=== PATIENT | male | born 1975 | race Caucasian/White ===

== ENCOUNTER 2019-11-27 18:25 | Emergency (ER) | payer OTHER, SELFPAY ==
--- NOTE | 2019-11-27 18:46 | ED.URI ---
HPI - URI/Sore Throat General Chief Complaint: Upper Respiratory Infection Stated Complaint: cough Time Seen by Provider: 11/27/19 18:46 Source: patient and RN notes reviewed History of Present Illness HPI Narrative: Patient is a 44-year-old male that presents the urgent care with complaints of cough for the last 2 weeks but is now productive and yellow within the last day. Patient states he is also had some intermittent shortness of breath with coughing fits. Denies any wheezing. Has been using Mucinex. Denies any fever. No other acute complaints. No acute distress noted. Patient read the plan of care. Related Data Home Medications Medication Instructions Recorded Confirmed lisinopril 10 mg PO DAILY 11/27/19 11/27/19 pravastatin 20 mg PO DAILY 11/27/19 11/27/19 Allergies Allergy/AdvReac Type Severity Reaction Status Date / Time No Known Allergies Allergy Verified 11/27/19 19:05 Review of Systems Review of Systems: Narrative: CONSTITUTIONAL: Denies fever, chills, or sweats. EYES: Denies visual changes, redness, or discharge. ENT: Denies rhinorrhea, congestion, sore throat, or otalgia. CARDIOVASCULAR: Denies chest pain, palpitations, or edema. RESPIRATORY: Reports of cough with intermittent dyspnea with coughing fits. GASTROINTESTINAL: Denies abdominal pain, nausea, vomiting, or diarrhea. GENITOURINARY: Denies dysuria or hematuria. SKIN: Denies rash or itching. MUSCULOSKELETAL: Denies back pain, joint pain, or myalgia. NEUROLOGIC: Denies headache, numbness, or weakness. All other systems reviewed are negative, except as documented in HPI. PMFSH Comments At the time of my signature, I reviewed and agree with the nursing past medical, surgical, social, and family history. There is no relevant family history pertinent to the patient complaint. Exam Narrative: Exam Narrative: GENERAL: This is a well-nourished, well-developed patient, in no apparent distress. HEAD: normocephalic, atraumatic. EYES: PERRL. Sclera clear/white. Vision is grossly intact. EARS: External ears normal, auditory canals clear and without drainage, TMs normal without perforation. Hearing grossly intact. NOSE: External nose normal with no obvious nasal discharge, nares without redness, no rhinorrhea. THROAT: Mucous membranes moist, posterior pharynx clear. Moderate postnasal drainage NECK: Neck supple CARDIOVASCULAR: Regular rate and rhythm without murmurs, gallops, or rubs. RESPIRATORY: Slight expiratory wheeze to right upper lobe, cleared with cough. Otherwise clear SKIN: warm, intact with no suspicious lesions or rash, good texture and turgor. NEURO: awake, alert, and oriented to person, place and time. There were no obvious focal neurologic abnormalities. EXTREMITIES: No clubbing, cyanosis, or edema. Course Vital Signs Vital signs: Vital Signs Temperature 98.5 F 11/27/19 18:49 Pulse Rate 89 11/27/19 18:49 Respiratory Rate 16 11/27/19 18:49 Blood Pressure 146/93 H 11/27/19 18:49 Pulse Oximetry 98 11/27/19 18:49 Temperature 98.5 F 11/27/19 18:49 Pulse Rate 89 11/27/19 18:49 Respiratory Rate 16 11/27/19 18:49 Blood Pressure 146/93 H 11/27/19 18:49 Pulse Oximetry 98 11/27/19 18:49 Reviewed?patient is informed that they may have pre-hypertension or hypertension based on a blood pressure reading in the department. I recommend the patient call the primary care provider listed on their discharge instructions or a physician of their choice this week to arrange follow-up for further evaluation of possible pre-hypertension or hypertension. MDM - URI/Sore Throat MDM Narrative Medical decision making narrative: Advised the patient to use [id number] Claritin and Flonase as directed. Use prescription cough medication as prescribed. Complete steroid regimen as prescribed. Make sure to eat and drink with medication. Increase fluids and rest. Follow-up with PCP within 2 to 5 days or for worsening symptoms or lily
[2019-11-27 18:49] VITALS: BP 146/93; PULSE 89; RESP 16; TEMP 36.9; O2SAT 98
== END 2019-11-27 19:20 | disposition home or self-care (01) ==
PROVIDERS: Emergency Provider Nurse Practitioner Family
DX: J40 Bronchitis, not specified as acute or chronic (principal); E78.00 Pure hypercholesterolemia, unspecified; I10 Essential (primary) hypertension
CPT/HCPCS: 99203; G0463

== ENCOUNTER 2023-07-06 14:37 | Outpatient (CLI) | payer OTHER, SELFPAY ==
--- NOTE | ~2023-07-06 | CT_ITS ---
EXAMINATION: CT abdomen pelvis wo con DATE: 07/06/2023 14:57 INDICATION: Incisional hernia TECHNIQUE: Computed tomography (CT) of the abdomen and pelvis was performed without intravenous contr ast. Automated exposure control and iterative reconstruction technique were employed. Exam dose: 114 3.35 mGy-cm total exam DLP. COMPARISON: None. FINDINGS: The lung bases are clear. Heart size normal. No pericardial or pleural effusion. Foramen of Morgagni fat containing hernia. Status post cholecystectomy. No bile duct or pancreatic duct dilatation. No hepatic, pancreatic, splenic or adrenal space-occupying mass lesion. No renal mass lesion is evident on this limited noncontrast examination. No urinary tract calculus or hydroureteronephrosis. Retroaortic left renal vein. Normal caliber of the abdominal aorta. No intraperitoneal or retroperito eloise or pelvic mass lesion or adenopathy or ascites. Prostate enlargement and calcifications. The urinary bladder appears unremarkable. Bilateral fat-containing inguinal hernias, right greater than left. There is postoperative change at the distal small bowel. No bowel obstruction or pneumatosis or intra peritoneal free air is detected. There are multiple ventral abdominal wall hernias containing fat, with one containing the anterior wa ll of the transverse colon without strangulation or obstruction. Diffuse idiopathic skeletal hyperostosis of the lower thoracic spine. Mild degenerative change of the lumbar spine. No suspicious osteolytic or osteoblastic lesions are noted. IMPRESSION: Multiple fat-containing ventral abdominal wall hernia; the transverse colon anterior wal l extends into one of these but with no bowel strangulation or obstruction Bilateral fat-containing inguinal hernias Status post cholecystectomy Postoperative change of distal small bowel Reviewed, dictated and finalized at [facility]. Reviewed, dictated and finalized at [facility]. IMPRESSION: Multiple fat-containing ventral abdominal wall hernia; the transve rse colon anterior wall extends into one of these but with no bowel strangulati on or obstruction Bilateral fat-containing inguinal hernias Status post cholecystectomy Postoperative change of distal small bowel
== END 2023-07-06 14:38 ==
LOC: MICIMG 14:38
PROVIDERS: PCP Surgery; Visit Provider Surgery
DX: K43.2 Incisional hernia without obstruction or gangrene (principal); K40.20 Bilateral inguinal hernia, without obstruction or gangrene, not specified as recurrent; Z90.49 Acquired absence of other specified parts of digestive tract
CPT/HCPCS: 74176

== ENCOUNTER 2023-10-19 14:29 | Outpatient (CLI) | payer OTHER, SELFPAY ==
--- NOTE | 2023-10-19 14:52 | ECG_ITS ---
Measurements Intervals [place] Rate: 89 P: 69 FL: 172 QRS: 121 QRSD: 100 T: 59 QT: 336 QTc: 411 Interpretive Statements SINUS RHYTHM rad INCOMPLETE RIGHT BUNDLE BRANCH BLOCK BORDERLINE R WAVE PROGRESSION, ANTERIOR LEADS BORDERLINE ECG NO PREVIOUS ECG AVAILABLE FOR COMPARISON Electronically Signed On 10-19-2023 15:26:06 SPIRITUAL CARE COORDINATOR by Vlad Martin D.O.
[2023-10-19 14:58] LABS: Hematocrit 52.8 % (42.0-52.0); Hemoglobin 16.9 g/dL (14.0-18.0)
[2023-10-19 15:16] LABS: Anion Gap 9 mmol/L (8-16); Blood Urea Nitrogen 19 mg/dL (9-20); Calcium 9.1 mg/dL (8.4-10.2); Carbon Dioxide 29 mmol/L (22-30); Chloride 98 mmol/L (98-107); Estimated Glomerular Filt Rate > 60; Glucose 73 mg/dL (65-110); Potassium 4.6 mmol/L (3.4-5.0); Sodium 136 mmol/L (137-145)
== END 2023-10-19 14:30 | disposition home or self-care (01) ==
LOC: ANHLAB 14:32
PROVIDERS: PCP Nurse Practitioner Family; Visit Provider Anesthesiology
DX: K43.2 Incisional hernia without obstruction or gangrene (principal); Z79.899 Other long term (current) drug therapy; I10 Essential (primary) hypertension; Z01.818 Encounter for other preprocedural examination
CPT/HCPCS: 36415; 80048; 85014; 85018; 93005

== ENCOUNTER 2023-10-31 16:42 | Inpatient (IN) | payer OTHER, SELFPAY ==
[2023-10-18 14:07] VITALS: BMI 40.6
--- NOTE | 2023-10-18 14:29 | SUR.PREOP ---
Report to the Outpatient Waiting Room, entrance under the green pavilion located off [facility], at time 1000 on date 10/30/22. Planned Procedure Time: 1200. Time changes happen often and if your time is changed the preop area will call you the afternoon before. - You and your visitor will be asked to self-screen and do not enter if you have any COVID symptoms. - A mask is optional within the hospital at this time. Patients may have clear liquids (water, carbonated beverages, clear teas, apple juice) until 3 hours prior to surgery with a maximum of 20 ounces. - No food from midnight until time of surgery - Infants may have breast milk until 4 hours before surgery, infant formula 6 hours prior to surgery. - Children will be allowed to drink immediately following surgery. If applicable, please bring a bottle or sippy cup to assist with drinking. Juice, water, soda, and popsicles are readily available. For infants on formula, please bring formula the day of surgery. Pacifiers are allowed. Take the following medications with a SIP of water the morning of surgery: CARVEDILOL DO NOT STOP ANY OF YOUR OTHER PRESCRIPTION MEDICATIONS PRIOR TO SURGERY ?EXCEPT THE FOLLOWING Medications to discontinue per physician ALL VITAMINS AND SUPPLIMENTS 3 DAYS PRIOR TO PROCEDURE Date to take last dose 10/27/22 Please no make-up, nail kittitian, hairspray, perfume, deodorant, or body powder the day of surgery. No jewelry (including any body piercings) or valuables the day of surgery, leave them at home. Please take a shower or bath the night before, or the morning of, surgery with an antibacterial soap. Wear comfortable, loose fitting clothing. Children are encouraged to wear pajamas. - Jewelry must be removed prior to entering the operating room. Rings and piercings that are not removed may be cut off. - The hospital will not accept responsibility for valuables. - Please leave all valuables, including medications, at home the day of surgery. If you are going home after surgery, a licensed delivery route driver must drive you home. - NO public transportation without another adult if you receive anesthesia. - We recommend that an adult stay with you for 24 hours following discharge. - We also recommend that you do not drive, make important decision, drink alcoholic beverages, or take any drugs that were not prescribed by your health care provider for at least 24 hours after your discharge time. For Pediatric surgeries, we recommend two adults accompany the child home. Follow any additional instructions given to you from your surgeon. If you or anyone in your household have experienced Covid symptoms in the past week, please notify your surgeon or the nurse liaison at the phone number below for possible testing. Telephone instructions given to TED MATUTE and asked if any additional questions and then verbalized understanding. Patient advised to call surgeon office or pre surgery nurse liaison [phone] if any additional questions.
[2023-10-30] VITALS (16 sets, daily range): BP systolic 94–149; BP diastolic 58–95; PULSE 86–97; RESP 12–20; TEMP 36.1–37.1; O2SAT 90–98
[2023-10-30] MEDS: ACETAMINOPHEN 500 MG TABLET 1000 MG PO ×3 (10:20→23:37)
[2023-10-30] MEDS: KETOROLAC 15 MG/ML VIAL (*BKC) IV PUSH (10:20)
--- NOTE | 2023-10-30 11:21 | SUR.PREOP ---
patient and family updated on possible 30 minute delay to start time understanding stated
--- NOTE | 2023-10-30 11:40 | PM.IMHP ---
H&P: HPI History of Present Illness Date/Time: 10/30/23 11:40 Chief Complaint: Recurrent incisional hernia Narrative: This is a 48 yo man who presents for recurrent incisional hernia repair. He has had multiple abdominal surgeries in the past and has multiple incisional hernias along a midline scar. He reports no changes since last seen in office. Review of Systems Review of Systems: All systems reviewed & are unremarkable except as noted in HPI and below Constitutional: Constitutional: Denies chills, Denies fever(s), Denies headache(s) and Denies weight loss Eyes: Eyes: Denies change in vision ENT: Denies dizziness, Denies headache(s), Denies neck mass and Denies throat swelling Cardiovascular: Cardiovascular: Denies chest pain, Denies lightheadedness and Denies dyspnea Respiratory: Respiratory: Denies cough, Denies dyspnea and Denies wheezing Gastrointestinal: Gastrointestinal: Denies abdominal pain, Denies change in bowel habits, Denies nausea and Denies vomiting Genitourinary: Genitourinary: Denies hematuria and Denies dysuria Musculoskeletal: Musculoskeletal: Reports as per HPI Integumentary/Breasts: Skin/Breast: Reports as per HPI Neurologic: Denies dizziness and Denies headache(s) Allergic/Immunologic: Allergic/Immunologic: Denies throat swelling and Denies wheezing PMF Past Medical History Medical History Bowel obstruction Surgical History Surgical History History of cholecystectomy History of hernia surgery Adhesiolysis with incisional hernia repair on 09/20/08 at [facility] History of laparotomy +25 years ago Family History Family History Other Hypertension Social History Social History Smoking status: Never smoker Alcohol intake: current Living arrangements: with family Occupation/Education: occupation Spiritual care concerns: No Meds Home Medications and Allergies Home Medications Medication Instructions Recorded Confirmed Type carvedilol 12.5 mg tablet 12.5 mg PO Q12H 06/29/23 10/18/23 History lisdexamfetamine 60 mg capsule 60 mg PO DAILY 06/29/23 10/18/23 History rosuvastatin 10 mg tablet 10 mg PO DAILY 06/29/23 10/18/23 History testosterone enanthate 50 mg/0.5 50 mg subcut WEEKLY 06/29/23 10/18/23 History mL subcutaneous auto-injector valsartan 160 1 tablet PO DAILY 06/29/23 10/18/23 History mg-hydrochlorothiazide 25 mg tablet calcium-vitamin D3 1 cap PO DAILY 10/18/23 10/18/23 History Allergies Allergy/AdvReac Type Severity Reaction Status Date / Time pseudoephedrine AdvReac Headache Verified 10/30/23 10:37 [From Sudafed] Vital Signs Vital Signs - 24 hr 10/30/23 10:20 Temperature 36.9 C Pulse Rate 86 Respiratory Rate 14 Blood Pressure 149/95 H Pulse Oximetry 98 Oxygen Delivery Room Air Exam Const: General: no acute distress and alert Orientation/consciousness: patient oriented x3 HENMT: Head: normocephalic and atraumatic Ears: hearing grossly normal bilaterally Face/Nose/Sinus: Normal nares present Mouth: Yes Normal oral and palatal mucosa present Eyes: Periorbital: periorbital findings normal Sclera: sclerae normal EOM: EOMs intact bilaterally Neck: Neck: normal visual inspection, no lymphadenopathy and trachea midline Chest: Chest palpation & inspection: normal inspection of the chest Resp: Effort & Inspection: normal respiratory effort Auscultation: clear to auscultation bilaterally Cardio: Jugular venous distension: no JVD Rate: regular rate Rhythm: regular rhythm Heart sounds: S1 normal heart sound present and S2 normal heart sound present Peripheral pulses: Peripheral pulses 2+ throughout GI: Inspection: normal to inspection GI Palp: Yes Soft to palpation, No Tendernes
--- NOTE | 2023-10-30 11:45 | WPDANESEPPF ---
Anes - Initial Pre Proc Eval Procedure: Operation Date: 10/30/23 12:00 Proposed Procedures p Open Recurrent Incisional Hernia Repair with Mesh, Bilateral Component Separation - Jt Maher DO Date/Time: 10/30/23 11:45 Surgeon: Jt Maher DO Pre Op Diagnosis: Recurrent Incisional Hernia Patient Data Age: 48 Gender: M Height: 1.83 m Weight: 136.9 kg Last Vital Signs Temp 98.5 F 10/30/23 10:20 Pulse 86 10/30/23 10:20 Resp 14 10/30/23 10:20 BP 149/95 H 10/30/23 10:20 Pulse Ox 98 10/30/23 10:20 O2 Del Method Room Air 10/30/23 10:20 Allergies Allergy/AdvReac Type Severity Reaction Status Date / Time pseudoephedrine AdvReac Headache Verified 10/30/23 10:37 [From [facility]] Home Medications Medication Instructions Recorded Confirmed Type carvedilol 12.5 mg tablet 12.5 mg PO Q12H 06/29/23 10/18/23 History lisdexamfetamine 60 mg capsule 60 mg PO DAILY 06/29/23 10/18/23 History rosuvastatin 10 mg tablet 10 mg PO DAILY 06/29/23 10/18/23 History testosterone enanthate 50 mg/0.5 50 mg subcut WEEKLY 06/29/23 10/18/23 History mL subcutaneous auto-injector valsartan 160 1 tablet PO DAILY 06/29/23 10/18/23 History mg-hydrochlorothiazide 25 mg tablet calcium-vitamin D3 1 cap PO DAILY 10/18/23 10/18/23 History Patient hx anesthesia problems: none Family hx anesthesia problems: none Results Review: All pre-operative results and documents have been reviewed as part of the pre-operative evaluation. [facility] Past Medical History Medical History Bowel obstruction Surgical History Surgical History History of cholecystectomy History of hernia surgery Adhesiolysis with incisional hernia repair on 09/20/08 at [facility] History of laparotomy +25 years ago Family History Family History Other Hypertension Social History Social History Smoking status: Never smoker Alcohol intake: current Living arrangements: with family Occupation/Education: occupation Spiritual care concerns: No Anes - Eval Final PreProcedure Day of Procedure 10/30/23 11:45 Patient weight: morbidly obese Heart: regular rate and rhythm Lungs: clear to auscultation Airway: Mallampati scale class III Neurological: alert and oriented Last oral intake: >/= 8 hours ASA classification: III Emergent: no Anesthetic plan: proceed Anesthesia type and monitoring: general ETT (have glide scope available) and standard monitoring Results Review: All pre-operative results and documents have been reviewed as part of the pre-operative evaluation. Informed Consent: The patient's anesthetic plan and its attendant risks and benefits were discussed with the patient/family/POA. Questions were solicited and answers provided to the satisfaction of the patient/family/POA.
--- NOTE | 2023-10-30 11:52 | WPDHPUPDATE1 ---
History and Physical Update Update Date/Time: 10/30/23 11:52 History and Physical has been reviewed, including an updated exam of the patient. There are NO changes in the patient's condition. Risks, benefits, and alternatives have been discussed and questions answered. Patient agrees to proceed with procedure.
[2023-10-30] MEDS: LACTATED RINGERS 1,000 ML 30 ML IV CONT ×2 (12:00→12:02)
--- NOTE | 2023-10-30 16:14 | W.PM.PROC2 ---
Procedure Note - Detailed Date of Procedure 10/30/23 Pre-op Diagnosis Recurrent Incisional Hernia Post-op Diagnosis Same (20 cm Recurrent Incisional hernia) Procedure Performed 1. Open recurrent 20 cm incisional hernia repair with mesh 2. Bilateral myofascial release (transversus abdominis release--5 cm on the right and 5 cm on the left) Surgeon Jt Maher DO Frame Feeder Fritz Anaya MD Anesthesia General Indications This is a 48-year-old man who presented with a recurrent abdominal bulge. He has a history of multiple previous abdominal surgeries. He has a history exploratory laparotomy more than 25 years ago. He then also had a history of small-bowel obstruction and had undergone exploratory laparotomy, adhesiolysis, open cholecystectomy, and incisional hernia repair in 2007. He has noticed a recurrent bulge that has increased in size over the past 10 years. It does cause some slight discomfort. A CT of his abdomen and pelvis was performed which showed multiple incisional hernias. Discussions were made with the patient about treatment options and decision was made to proceed with open recurrent incisional hernia repair with mesh and bilateral component separation. Findings Open recurrent incisional hernia repair was performed. Patient had multiple recurrent incisional hernias along the linea alba measuring a total distance of 20 cm craniocaudal from the most superior hernia to the most inferior. The widest hernia was in the periumbilical region measuring about 10 cm wide. Careful adhesiolysis was initially performed to free up all adhesions from the anterior abdominal wall. I then did into the retrorectus space and took down the posterior rectus sheath. The fascia appeared very tight and would not come together without significant tension. I then performed a transversus abdominis release initially on the left side and this allowed about 5 cm of fascial advancement. The fascia was still difficult to bring together without too much tension therefore a transversus abdominis release was performed on the right side as well. This allowed another 5 cm of fascial advancement. I then was able to bring the fascia together in midline to perform the repair. A 30 cm x 30 cm Bard soft mesh this was placed within the retrorectus space. This was oriented in a ruma pattern for a total length of about 42 cm from xiphoid to pubis. The hernia sac was excised from the anterior rectus sheath and linea alba and this was sent to the lab for pathology. Dr. Anaya assisted with development of the retrorectus space as well as bilateral transversus abdominis release, fascial closure, and mesh placement. Description of Procedure Procedure as well as risks, benefits, and alternatives were discussed with the patient. Written consent was obtained and placed in chart prior to procedure. Patient was brought back to surgical suite. He was placed supine on operating table. Time-out was done to confirm patient and procedure. He was then intubated by the anesthesia department. His abdomen was prepped and draped in sterile fashion using chlorhexidine prep. A large vertical midline elliptical incision was made to encompass the old scar and umbilical skin. Electrocautery was used for hemostasis and for dissection of the scar from the subcutaneous tissue. The scar and umbilical skin was completely excised and discarded. The subcutaneous tissue was then dissected in the midline using electrocautery until the linea alba was encountered. I then carefully entered in through the linea alba at 1 of the hernias in the more superior abdomen. There was omentum protruding into the hernia, but the underlying fascia appeared free from bowel. I then continued blunt dissection and opened the linea alba throughout the length of the skin incision using electrocautery. Adhesiolysis was performed to take down any of the omental adhesions from the hernia defects and abdominal wall. I then co
[2023-10-30] MEDS: fentaNYL CITRATE INJ (*CRX) 100 MCG/2 ML VIAL 25 MCG IV PUSH ×6 (16:45→17:11)
--- NOTE | 2023-10-30 17:59 | ADMGEN ---
This patient, Cecil Bustillos III, was admitted to Medical Room 349-01. Patient/family oriented to hospital policies and general routines including ID bracelet, bed and alarms, visiting hours, pain management, procedures, bathroom and other care routines, personal items, smoking policy, room service/diet, and visiting hours. Information on how to activate the Rapid Response Team has been discussed. Patient/Family are encouraged to report perceived risks to care and to ask questions if they do not understand what they are told or what they should do.
[2023-10-30] MEDS: IBUPROFEN IV 800 MG/200 ML 800 MG/200 ML BAG 400 MG IVPB ×2 (18:11→23:34)
[2023-10-30] MEDS: LACTATED RINGERS 1,000 ML 150 ML IV CONT (18:11)
[2023-10-30] MEDS: HYDROmorphone HCL INJ (*CRX) 1 MG/ML SYR IV PUSH (18:20)
[2023-10-30] MEDS: carvediloL 12.5 MG TABLET PO (20:02)
[2023-10-30] MEDS: ceFAZolin 2 GM/D5W 50 ML 2 GM/50 ML BAG IVPB (20:02)
[2023-10-30] MEDS: oxyCODONE HCL (*CRX) 5 MG TAB IR 10 MG PO (20:10)
[2023-10-31] VITALS (7 sets, daily range): BP systolic 117–138; BP diastolic 65–78; PULSE 71–90; RESP 14–16; TEMP 36.4–36.8; O2SAT 92–95
[2023-10-31] MEDS: oxyCODONE HCL (*CRX) 5 MG TAB IR 10 MG PO ×2 (00:11→14:04)
[2023-10-31] MEDS: HYDROmorphone HCL INJ (*CRX) 1 MG/ML SYR IV PUSH (02:13)
[2023-10-31] MEDS: LACTATED RINGERS 1,000 ML 150 ML IV CONT (02:20)
[2023-10-31] MEDS: ceFAZolin 2 GM/D5W 50 ML 2 GM/50 ML BAG IVPB ×2 (04:18→11:47)
[2023-10-31] MEDS: IBUPROFEN IV 800 MG/200 ML 800 MG/200 ML BAG 400 MG IVPB ×4 (05:56→23:39)
[2023-10-31] MEDS: ACETAMINOPHEN 500 MG TABLET 1000 MG PO ×4 (05:56→23:38)
[2023-10-31 07:15] LABS: Hematocrit 46.7 % (42.0-52.0); Hemoglobin 14.7 g/dL (14.0-18.0); Mean Corpuscular HGB Conc 31.5 g/dl (32-36); Mean Corpuscular Hemoglobin 28.6 pg (26-34); Mean Corpuscular Volume 90.9 fl (80-100); Mean Platelet Volume 9.7 fl (7.4-10.4); Platelet Count Result 259 k/mm3 (150-375); Red Blood Count 5.14 M/mm3 (4.6-6.20); Red Cell Distribution Width 14.2 % (11.5-14.5); White Blood Count 26.9 K/mm3 (4.5-10.0)
[2023-10-31 07:27] LABS: Anion Gap 7 mmol/L (8-16); Blood Urea Nitrogen 26 mg/dL (9-20); Calcium 7.6 mg/dL (8.4-10.2); Carbon Dioxide 29 mmol/L (22-30); Chloride 96 mmol/L (98-107); Estimated CRCL calculation 88 ml/min; Estimated Glomerular Filt Rate 59; Glucose 121 mg/dL (65-110); Potassium 4.3 mmol/L (3.4-5.0); Sodium 132 mmol/L (137-145)
--- NOTE | 2023-10-31 08:15 | WPDANESPN ---
Anes - Prog Note Post-Op Date/Time: 10/31/23 08:15 Cardiovascular status: normal Respiratory status: normal Airway patency: baseline Mental status: baseline Post-Op hydration status: normal Vital Signs: Last Vital Signs Temp 36.6 C 10/31/23 03:27 Pulse 90 10/31/23 03:27 Resp 14 10/31/23 03:27 BP 134/67 10/31/23 03:27 Pulse Ox 92 10/31/23 03:27 O2 Del Method CPAP 10/30/23 21:17 O2 Flow Rate 2 10/30/23 17:30 Pain Score (VAS): 12/23 I/O: Intake & Output 10/30/23 10/31/23 10/31/23 23:59 07:59 15:59 Intake Total 600 1200 Output Total 40 495 Balance 560 705 Laboratory Tests 10/31/23 07:07 10/31/23 07:07 10/31/23 07:07 WBC 26.9 H RBC 5.14 Hgb 14.7 Hct 46.7 MCV 90.9 MCH 28.6 MCHC 31.5 L RDW 14.2 Plt Count 259 MPV 9.7 Sodium 132 L Potassium 4.3 Chloride 96 L Carbon Dioxide 29 Anion Gap 7 L BUN 26 H Creatinine 1.30 Estim Creat Clear Calc 88 Estimated GFR 59 Glucose 121 H Calcium 7.6 L Post-procedural complaints: none Patient Feedback: Patient satisfied with anesthetic care.
[2023-10-31] MEDS: ENOXAPARIN 40 MG/0.4 ML SYRINGE SUB-Q (09:03)
[2023-10-31] MEDS: ROSUVASTATIN 10 MG TABLET PO (09:03)
[2023-10-31] MEDS: carvediloL 12.5 MG TABLET PO ×2 (09:03→20:59)
[2023-10-31] MEDS: ALVIMOPAN 12 MG CAPSULE PO ×2 (09:56→20:59)
--- NOTE | 2023-10-31 11:07 | PM.PNGS ---
Progress Note: A&P Assessment and Plan (1) Recurrent incisional hernia: Code(s): K43.2 - Incisional hernia without obstruction or gangrene Status: Acute Assessment and Plan: Advance to regular diet today. Stop IV fluids and remove Tracey. Slowly increase activity. (2) Hypertension: Qualifiers: Hypertension type: primary hypertension Qualified Code(s): I10 - Essential (primary) hypertension Code(s): I10 - Essential (primary) hypertension Status: Acute Subjective Subjective Date/Time Seen: 10/31/23 11:07 Interval history: Pain controlled. Feeling a little better. Tolerating clears. Exam GI: Inspection: incision (mild bleeding at inferior ecsar, otherwise intact and dry) GI Palp: Yes Soft to palpation, Yes Tenderness to palpation present (GI) (incisional) and No Guarding due to palpation present (GI) Objective Data Vital Signs Vital Signs: Vital Signs - 24 hr 10/30/23 15:56 10/30/23 16:00 10/30/23 16:15 Temperature 36.1 C L Pulse Rate 89 91 92 Respiratory Rate 17 19 20 Blood Pressure 100/84 99/58 L 105/59 L Pulse Oximetry 95 96 93 Oxygen Delivery Simple Face Mask Simple Face Mask Room Air Oxygen Flow Rate 10 10 10/30/23 16:18 10/30/23 16:30 10/30/23 16:45 Temperature Pulse Rate 94 94 Respiratory Rate 19 19 Blood Pressure 94/68 L 119/72 Pulse Oximetry 90 93 93 Oxygen Delivery Nasal Cannula Nasal Cannula Nasal Cannula Oxygen Flow Rate 2 2 2 10/30/23 17:00 10/30/23 17:15 10/30/23 17:30 Temperature Pulse Rate 97 96 95 Respiratory Rate 17 18 20 Blood Pressure 121/71 128/76 120/69 Pulse Oximetry 93 94 93 Oxygen Delivery Nasal Cannula Nasal Cannula Nasal Cannula Oxygen Flow Rate 2 2 2 10/30/23 18:00 10/30/23 18:15 10/30/23 19:27 Temperature 37.0 C 37.1 C 36.6 C Pulse Rate 92 94 Respiratory Rate 16 16 12 Blood Pressure 138/88 146/86 H 133/78 Pulse Oximetry 91 95 93 Oxygen Delivery Oxygen Flow Rate 10/30/23 20:02 10/30/23 21:17 10/30/23 23:27 Temperature 36.7 C Pulse Rate 95 90 92 Respiratory Rate 14 Blood Pressure 116/68 Pulse Oximetry 90 95 Oxygen Delivery CPAP Oxygen Flow Rate 10/31/23 03:27 10/31/23 08:00 10/31/23 09:03 Temperature 36.6 C 36.7 C Pulse Rate 90 71 71 Respiratory Rate 14 16 Blood Pressure 134/67 134/75 Pulse Oximetry 92 94 Oxygen Delivery Oxygen Flow Rate Intake/Output Intake/Output: Intake & Output 10/28/23 10/29/23 10/30/23 10/31/23 23:59 23:59 23:59 23:59 Intake Total 600 1440 Output Total 40 495 Balance 560 945 Meds/Results Medications: Active Medications Generic Name Dose Route Start Last Admin Trade Name Freq PRN Reason Stop Dose Admin Acetaminophen 1,000 mg 10/30/23 18:00 10/31/23 05:56 Acetaminophen 500 Mg Tablet PO 1,000 mg Q6H ABNER Administration Alvimopan 12 mg 10/31/23 09:00 10/31/23 09:56 Alvimopan 12 Mg Capsule PO 11/07/23 09:01 12 mg Q12HR ABNER Administration Carvedilol 12.5 mg 10/30/23 21:00 10/31/23 09:03 Carvedilol 12.5 Mg Tablet PO 12.5 mg Q12H ABNER Administration Enoxaparin Sodium 40 mg 10/31/23 09:00 10/31/23 09:03 Enoxaparin 40 Mg/0.4 Ml Syringe SUB-Q 40 mg DAILY ABNER Administration Hydromorphone HCl 0.5 mg 10/30/23 17:42 Hydromorphone Hcl Inj (*Crx) 1 Mg/Ml Syr IV PUSH Q2H PRN Pain Rated 4-6 Hydromorphone HCl 1 mg 10/30/23 17:42 10/31/23 02:13 Hydromorphone Hcl Inj (*Crx) 1 Mg/Ml Syr IV PUSH 1 mg Q2H PRN Administration Pain Rated 7-10 Ibuprofen 800 mg in 200 mls @ 400 mls/hr 10/30/23 18:00 10/31/23 05:56 Caldolor 800 Mg/200 Ml IVPB 400 mls/hr Q6H ABNER Administration Cefazolin Sodium 2 gm in 50 mls @ 100 mls/hr 10/30/23 20:00 10/31/23 04:18 Ancef 2 Gm/D5w 50 Ml IVPB 10/31/23 12:29 100 mls/hr Q8H ABNER Administration Miscellaneous Information 1 each 10/31/23 00:01 Med Rec Order Clarification XX 11/30/23 00:00 CL
[2023-11-01] MEDS: ACETAMINOPHEN 500 MG TABLET 1000 MG PO ×3 (05:17→23:27)
[2023-11-01] MEDS: IBUPROFEN IV 800 MG/200 ML 800 MG/200 ML BAG 400 MG IVPB ×4 (05:17→23:27)
[2023-11-01 05:50] VITALS: BP 139/78; PULSE 83; RESP 18; TEMP 36.7; O2SAT 93
[2023-11-01 06:04] LABS: Hemoglobin 13.5 g/dL (14.0-18.0); Mean Corpuscular HGB Conc 31.4 g/dl (32-36); Mean Corpuscular Hemoglobin 28.4 pg (26-34); Mean Corpuscular Volume 90.5 fl (80-100); Mean Platelet Volume 9.9 fl (7.4-10.4); Platelet Count Result 232 k/mm3 (150-375); Red Blood Count 4.75 M/mm3 (4.6-6.20); White Blood Count 16.1 K/mm3 (4.5-10.0)
[2023-11-01 06:16] LABS: Anion Gap 6 mmol/L (8-16); Blood Urea Nitrogen 23 mg/dL (9-20); Calcium 7.8 mg/dL (8.4-10.2); Carbon Dioxide 29 mmol/L (22-30); Chloride 99 mmol/L (98-107); Estimated CRCL calculation 113 ml/min; Estimated Glomerular Filt Rate > 60; Glucose 105 mg/dL (65-110); Potassium 3.7 mmol/L (3.4-5.0); Sodium 134 mmol/L (137-145)
[2023-11-01] MEDS: ROSUVASTATIN 10 MG TABLET PO (09:18)
[2023-11-01] MEDS: ALVIMOPAN 12 MG CAPSULE PO ×2 (09:18→20:55)
[2023-11-01] MEDS: ENOXAPARIN 40 MG/0.4 ML SYRINGE SUB-Q (09:18)
[2023-11-01 09:19] VITALS: PULSE 103
[2023-11-01] MEDS: carvediloL 12.5 MG TABLET PO ×2 (09:19→20:54)
--- NOTE | 2023-11-01 14:34 | PM.PNGS ---
Progress Note: A&P Assessment and Plan (1) Recurrent incisional hernia: Code(s): K43.2 - Incisional hernia without obstruction or gangrene Status: Acute Assessment and Plan: Continues to improve. Tolerating a regular diet. Monitor SHELLI drain. Continue to increase activity as tolerated. If he continues to improve, will possibly discharge tomorrow. (2) Hypertension: Qualifiers: Hypertension type: primary hypertension Qualified Code(s): I10 - Essential (primary) hypertension Code(s): I10 - Essential (primary) hypertension Status: Acute Plan I have discussed the patient's case and plan of care with Dr. Maher. Subjective Subjective Date/Time Seen: 11/01/23 14:34 Post Op day: 2 Patient reports: no new complaints, tolerating a regular diet, voiding w/o difficulty, flatus and afebrile Interval history: Patient doing well today. He is increasing activity and tolerating this well. Tolerating a regular diet without nausea or vomiting. He feels the Ibuprofen IV is helping his pain control the most. Voiding well after Tracey catheter was removed. No other complaints at this time. Review of Systems Review of Systems: All systems reviewed & are unremarkable except as noted in HPI and below Exam Const: General: no acute distress and alert GI: Inspection: incision (dressing dry and intact) and other (SHELLI drain with sanguineous drainage) GI Palp: Yes Soft to palpation and Yes Tenderness to palpation present (GI) Auscultation: normal bowel sounds Objective Data Vital Signs Vital Signs: Vital Signs - 24 hr 10/31/23 15:27 10/31/23 20:57 10/31/23 22:00 Temperature 98.3 F 97.6 F Pulse Rate 72 88 85 Respiratory Rate 16 16 Blood Pressure 117/65 135/75 Pulse Oximetry 93 93 93 Oxygen Delivery CPAP 11/01/23 05:50 11/01/23 09:19 11/01/23 08:00 Temperature 98.1 F Pulse Rate 83 103 H Respiratory Rate 18 Blood Pressure 139/78 Pulse Oximetry 93 Oxygen Delivery Room Air Intake/Output Intake/Output: Intake & Output 10/29/23 10/30/23 10/31/23 11/01/23 23:59 23:59 23:59 23:59 Intake Total 600 2570 1200 Output Total 40 1065 Balance 560 1505 1200 Meds/Results Medications: Active Medications Generic Name Dose Route Start Last Admin Trade Name Freq PRN Reason Stop Dose Admin Acetaminophen 1,000 mg 10/30/23 18:00 11/01/23 11:27 Acetaminophen 500 Mg Tablet PO 1,000 mg Q6H ABNER Administration Alvimopan 12 mg 10/31/23 09:00 11/01/23 09:18 Alvimopan 12 Mg Capsule PO 11/07/23 09:01 12 mg Q12HR ABNER Administration Carvedilol 12.5 mg 10/30/23 21:00 11/01/23 09:19 Carvedilol 12.5 Mg Tablet PO 12.5 mg Q12H ABNER Administration Enoxaparin Sodium 40 mg 10/31/23 09:00 11/01/23 09:18 Enoxaparin 40 Mg/0.4 Ml Syringe SUB-Q 40 mg DAILY ABNER Administration Hydromorphone HCl 0.5 mg 10/30/23 17:42 Hydromorphone Hcl Inj (*Crx) 1 Mg/Ml Syr IV PUSH Q2H PRN Pain Rated 4-6 Hydromorphone HCl 1 mg 10/30/23 17:42 10/31/23 02:13 Hydromorphone Hcl Inj (*Crx) 1 Mg/Ml Syr IV PUSH 1 mg Q2H PRN Administration Pain Rated 7-10 Ibuprofen 800 mg in 200 mls @ 400 mls/hr 10/30/23 18:00 11/01/23 11:58 Caldolor 800 Mg/200 Ml IVPB Infused Q6H [facility] Infusion Miscellaneous Information 1 each 10/31/23 00:01 Med Rec Order Clarification XX 11/30/23 00:00 [facility] Naloxone HCl 0.1 mg 10/30/23 17:42 Naloxone Hcl 0.4 Mg/Ml Vial IV PUSH Q2M PRN Opiate Reversal Non-Formulary Medication 60 mg 10/31/23 09:00 Lisdexamfetamine PO 11/30/23 08:59 DAILY [facility] Ondansetron HCl 4 mg 10/30/23 17:42 Ondansetron Inj 4 Mg/2 Ml Vial IV PUSH Q4H PRN Nausea And Vomiting Oxycodone HCl 5 mg 10/30/23 17:42 Oxycodone Hcl (*Crx) 5 Mg Tab Ir PO Q4H PRN Pain Rated 4-6 Oxycodone HCl 10 mg 10/30/23 17:42 10/31/23 14:04 Oxycodone Hcl (*Crx) 5 Mg Tab Ir PO 10 m
[2023-11-01 15:13] VITALS: BP 121/77; PULSE 92; RESP 18; TEMP 36.5; O2SAT 96
[2023-11-01] MEDS: oxyCODONE HCL (*CRX) 5 MG TAB IR PO (17:10)
[2023-11-01 20:00] VITALS: PULSE 90; RESP 18; O2SAT 97
[2023-11-01 20:54] VITALS: PULSE 84
[2023-11-01 21:15] VITALS: BP 134/72; PULSE 90; RESP 18; TEMP 36.6; O2SAT 97
[2023-11-02 03:50] VITALS: BP 153/80; PULSE 87; RESP 18; TEMP 36.9; O2SAT 96
[2023-11-02] MEDS: ACETAMINOPHEN 500 MG TABLET 1000 MG PO ×3 (05:32→17:03)
[2023-11-02] MEDS: IBUPROFEN IV 800 MG/200 ML 800 MG/200 ML BAG 400 MG IVPB (05:32)
[2023-11-02 06:13] LABS: Hematocrit 40.4 % (42.0-52.0); Mean Corpuscular HGB Conc 32.2 g/dl (32-36); Mean Corpuscular Hemoglobin 28.6 pg (26-34); Mean Platelet Volume 9.6 fl (7.4-10.4); Platelet Count Result 244 k/mm3 (150-375); Red Blood Count 4.54 M/mm3 (4.6-6.20); Red Cell Distribution Width 13.8 % (11.5-14.5); White Blood Count 12.5 K/mm3 (4.5-10.0)
[2023-11-02 06:23] LABS: Anion Gap 6 mmol/L (8-16); Blood Urea Nitrogen 16 mg/dL (9-20); Calcium 7.9 mg/dL (8.4-10.2); Carbon Dioxide 29 mmol/L (22-30); Chloride 100 mmol/L (98-107); Estimated CRCL calculation 139 ml/min; Estimated Glomerular Filt Rate > 60; Glucose 95 mg/dL (65-110); Potassium 3.9 mmol/L (3.4-5.0); Sodium 135 mmol/L (137-145)
[2023-11-02] MEDS: ALVIMOPAN 12 MG CAPSULE PO ×2 (08:14→20:46)
[2023-11-02] MEDS: ROSUVASTATIN 10 MG TABLET PO (08:14)
[2023-11-02] MEDS: ENOXAPARIN 40 MG/0.4 ML SYRINGE SUB-Q (08:14)
[2023-11-02 08:15] VITALS: PULSE 91
[2023-11-02] MEDS: carvediloL 12.5 MG TABLET PO ×2 (08:15→20:46)
[2023-11-02 14:00] VITALS: BP 144/78; PULSE 85; RESP 18; TEMP 36.8; O2SAT 97
[2023-11-02] MEDS: oxyCODONE HCL (*CRX) 5 MG TAB IR PO (15:33)
--- NOTE | 2023-11-02 16:51 | PM.PNGS ---
Progress Note: A&P Assessment and Plan (1) Recurrent incisional hernia: Code(s): K43.2 - Incisional hernia without obstruction or gangrene Status: Acute Assessment and Plan: Doing well overall. He is having a fair amount of drainage from his midline incision. We have consulted the wound care nurses to apply a wound VAC over the incision to help control drainage rather than doing frequent dressing changes at home. We will work on insurance approval. Plan to discharge once he is approved for the home wound VAC. Remove SHELLI drain today. (2) Hypertension: Qualifiers: Hypertension type: primary hypertension Qualified Code(s): I10 - Essential (primary) hypertension Code(s): I10 - Essential (primary) hypertension Status: Acute Plan I have discussed the patient's case and plan of care with Dr. Maher. Subjective Subjective Date/Time Seen: 11/02/23 16:51 Post Op day: 3 Patient reports: no new complaints, tolerating a regular diet, flatus, bowel movement and afebrile Interval history: Patient doing well. Tolerating activity. Pain well controlled. He is having a fair amount of drainage from his incision. They had to change his dressing twice since it was changed yesterday. It is seeping through even to his abdominal binder. SHELLI drain with minimal output. Review of Systems Review of Systems: All systems reviewed & are unremarkable except as noted in HPI and below Exam Const: General: no acute distress and alert Orientation/consciousness: patient oriented x3 GI: Inspection: incision (midline incision with moderate serosanguineous drainage) and other (SHELLI drain with scant sanguineous drainage) GI Palp: Yes Soft to palpation and Yes Tenderness to palpation present (GI) Auscultation: normal bowel sounds Objective Data Vital Signs Vital Signs: Vital Signs - 24 hr 11/01/23 20:54 11/01/23 21:15 11/01/23 20:00 Temperature 97.8 F Pulse Rate 84 90 90 Respiratory Rate 18 18 Blood Pressure 134/72 Pulse Oximetry 97 97 Oxygen Delivery Room Air 11/02/23 03:50 11/02/23 08:15 11/02/23 08:00 Temperature 98.4 F Pulse Rate 87 91 Respiratory Rate 18 Blood Pressure 153/80 H Pulse Oximetry 96 Oxygen Delivery Room Air 11/02/23 14:00 Temperature 98.3 F Pulse Rate 85 Respiratory Rate 18 Blood Pressure 144/78 H Pulse Oximetry 97 Oxygen Delivery Intake/Output Intake/Output: Intake & Output 10/30/23 10/31/23 11/01/23 11/02/23 23:59 23:59 23:59 23:59 Intake Total 600 2570 2630 1130 Output Total 40 1065 Balance 560 1505 2630 1130 Meds/Results Medications: Active Medications Generic Name Dose Route Start Last Admin Trade Name Freq PRN Reason Stop Dose Admin Acetaminophen 1,000 mg 10/30/23 18:00 11/02/23 11:25 Acetaminophen 500 Mg Tablet PO 1,000 mg Q6H ABNER Administration Alvimopan 12 mg 10/31/23 09:00 11/02/23 08:14 Alvimopan 12 Mg Capsule PO 11/07/23 09:01 12 mg Q12HR ABNER Administration Carvedilol 12.5 mg 10/30/23 21:00 11/02/23 08:15 Carvedilol 12.5 Mg Tablet PO 12.5 mg Q12H ABNER Administration Enoxaparin Sodium 40 mg 10/31/23 09:00 11/02/23 08:14 Enoxaparin 40 Mg/0.4 Ml Syringe SUB-Q 40 mg DAILY ABNER Administration Hydromorphone HCl 0.5 mg 10/30/23 17:42 Hydromorphone Hcl Inj (*Crx) 1 Mg/Ml Syr IV PUSH Q2H PRN Pain Rated 4-6 Hydromorphone HCl 1 mg 10/30/23 17:42 10/31/23 02:13 Hydromorphone Hcl Inj (*Crx) 1 Mg/Ml Syr IV PUSH 1 mg Q2H PRN Administration Pain Rated 7-10 Ibuprofen 800 mg in 200 mls @ 400 mls/hr 10/30/23 18:00 11/02/23 13:45 Caldolor 800 Mg/200 Ml IVPB Not Given Q6H [facility] Miscellaneous Information 1 each 10/31/23 00:01 11/02/23 15:17 Med Rec Order Clarification XX 11/30/23 00:00 Not Given [facility] Naloxone HCl 0.1 mg 10/30/23 17:42 Naloxone Hcl 0.4 Mg/Ml Vial IV PUSH Q2M PRN Opiate Reversal Non-Formula
[2023-11-02 20:00] VITALS: PULSE 85; RESP 16; O2SAT 95
[2023-11-02 20:41] VITALS: BP 147/82; PULSE 85; RESP 16; TEMP 36.4; O2SAT 95
[2023-11-02 20:46] VITALS: PULSE 85
[2023-11-03] MEDS: oxyCODONE HCL (*CRX) 5 MG TAB IR PO ×2 (01:30→12:09)
[2023-11-03 05:08] VITALS: BP 145/87; PULSE 72; RESP 14; TEMP 36.9; O2SAT 98
[2023-11-03] MEDS: ROSUVASTATIN 10 MG TABLET PO (08:38)
[2023-11-03] MEDS: ENOXAPARIN 40 MG/0.4 ML SYRINGE SUB-Q (08:38)
[2023-11-03] MEDS: ALVIMOPAN 12 MG CAPSULE PO (08:38)
[2023-11-03 08:39] VITALS: PULSE 86
[2023-11-03] MEDS: carvediloL 12.5 MG TABLET PO (08:39)
--- NOTE | 2023-11-03 09:03 | PM.DS ---
DS: Admitting Diagnosis Discharge Date 11/03/2023 Admitting Diagnosis Recurrent incisional hernia, hypertension DS: Discharge Diagnosis Discharge Diagnosis (1) Recurrent incisional hernia: Code(s): K43.2 - Incisional hernia without obstruction or gangrene Status: Acute (2) Hypertension: Qualifiers: Hypertension type: primary hypertension Qualified Code(s): I10 - Essential (primary) hypertension Code(s): I10 - Essential (primary) hypertension Status: Acute DS: Summary Hospital Course Reason for hospitalization: Recurrent incisional hernia Hospital Course: This is a 48-year-old man who presented with a large recurrent incisional hernia. He has a history of exploratory laparotomy followed by bowel obstruction which required repeat laparotomy and incisional hernia repair. Over the past several years he has noticed increased bulging in his midline abdominal region. CT showed evidence of multiple recurrent incisional hernias. He presented on 10/30/2023 for open recurrent incisional hernia repair with mesh and bilateral component separation. Surgery was uncomplicated and he was admitted to the surgical floor postoperatively. This was a very large wide hernia which required significant mobilization of the abdominal wall and myofascial advancement flaps to bring the fascia together in midline. A retro rectus drain was placed at the time of surgery and this was monitored postoperatively. His diet was slowly advanced as tolerated. Postop day 1 he was having some drainage from the inferior portion of his incision. The drainage was bloody but did not appear to be showing signs of active bleeding. He was remaining hemodynamically stable. His pain was controlled with IV and oral pain medications. Over the next couple days he still continued to have some serosanguineous drainage from between several cesar along the incision. The SHELLI drain output was remaining minimal. Decision was made to consult wound care nurses for placement of a wound VAC over the staple line to help prevent persistent drainage or seroma formation. Arrangements were made for home health and outpatient wound VAC management. The patient continued to improve with activity and pain control. On postop day for he was doing well with activity and wound care. He was discharged on postop day 4. Status at Discharge Functional status at discharge: independent ambulation Overall status at discharge: patient is back to baseline Time Spent with Patient Time attestation: Total time spent providing and/or coordinating discharge services: Time spent: Less than 30 minutes Exam Const: General: comfortable, no acute distress and alert Orientation/consciousness: patient oriented x3 Resp: Effort & Inspection: normal respiratory effort Auscultation: clear to auscultation bilaterally Cardio: Rate: regular rate Rhythm: regular rhythm Heart sounds: S1 normal heart sound present and S2 normal heart sound present GI: Inspection: incision (Intact with wound VAC dressing dry, minimal serosanguineous output) GI Palp: Yes Soft to palpation, Yes Tenderness to palpation present (GI) (Incisional) and No Guarding due to palpation present (GI) DS: Data Data Completed and Pending Completed studies during hospitalization: Pending at discharge 10/30/23 13:18 Surgical [PTH] Routine Discharge Plan Discharge Attending physician on discharge: Jt Maher Discharging Clinician: Jt Maher Patient Disposition: Home Health Service Activity: other - see discharge instructions Diet: regular Wound Care Instructions: other - see discharge instructions Discharge Instructions: Per Care Coordination. Patient to have Nahid for RN/PT/OT eval and treat [phone]. Pt. will have wound vac changes. Home Health will contact patient to schedule first visits. DISCHARGE INSTRUCTION SHEET FOR HERNIA, GALLBLADDER AND APPENDIX
== END 2023-11-03 12:50 | disposition home health service (06) | DRG 355 ==
LOC: ANHSURGERY 17:10 → ANH3MED 17:10
PROVIDERS: Nurse Practitioner Family; Admitting Provider Surgery; PCP Nurse Practitioner Family; Visit Provider Surgery
PROC: 0WQF0ZZ Repair Abdominal Wall, Open Approach (ICD-10-PCS; principal; 2023-10-30 12:00)
DX: K43.2 Incisional hernia without obstruction or gangrene (principal); I10 Essential (primary) hypertension; Z28.21 Immunization not carried out because of patient refusal; Z90.49 Acquired absence of other specified parts of digestive tract
CPT/HCPCS: 36415; 80048; 85027; 88302; A9270; C1781; G0378; J0330; J0690; J1100; J1170; J1650; J1741; J1885; J2250; J2371; J2405; J2704; J3010; J7120

== ENCOUNTER 2024-04-17 07:34 | Outpatient (RCR) | payer OTHER, SELFPAY ==
[2024-02-13 14:57] VITALS: BMI 42.7
--- NOTE | 2024-04-30 13:59 | PCWOUND ---
WOCN NOTE Patient cancelled for today and states he will call back when he needs to reschedule.
== END 2024-05-13 23:59 | disposition home or self-care (01) ==
LOC: ANHWOC 07:34
PROVIDERS: PCP Nurse Practitioner Family; Visit Provider Surgery
DX: Z48.89 Encounter for other specified surgical aftercare (principal); T81.89XD Other complications of procedures, not elsewhere classified, subsequent encounter
CPT/HCPCS: 99213; 99214; A9270; G0463

== ENCOUNTER 2024-05-14 14:26 | Outpatient (RCR) | payer OTHER, SELFPAY | END 2024-07-29 08:28 | disposition home or self-care (01) | LOC: ANHWOC 14:26 | PROVIDERS: PCP Nurse Practitioner Family; Visit Provider Surgery | DX: T81.89XD Other complications of procedures, not elsewhere classified, subsequent encounter (principal) | CPT/HCPCS: 99213; G0463 ==

== ENCOUNTER 2024-07-25 14:29 | Emergency (ER) | payer OTHER, SELFPAY ==
[2024-07-25 14:35] VITALS: BP 130/80; PULSE 82; RESP 18; TEMP 37.1; O2SAT 97
--- NOTE | 2024-07-25 15:04 | ED.URI ---
HPI - URI/Sore Throat General Chief Complaint: Upper Respiratory Infection Stated Complaint: cough Time Seen by Provider: 07/25/24 15:04 Source: patient, RN notes reviewed and old records reviewed Mode of arrival: ambulatory Limitations: no limitations History of Present Illness HPI Narrative: 49-year-old male to [facility] with complaint dry for nearly 2 weeks. Patient states he has treated at home with Zyrtec and old prescription cough medicine with codeine from his primary care provider. Patient reports taking 2 Benadryl last night in attempt to help him sleep without relief. Patient denies shortness of breath, chest pain, pertinent medical history. Patient resting comfortably no acute distress. Related Data Home Medications Medication Instructions Recorded Confirmed carvedilol 12.5 mg tablet 12.5 mg PO Q12H 06/29/23 07/25/24 lisdexamfetamine 60 mg capsule 60 mg PO DAILY 06/29/23 07/25/24 rosuvastatin 10 mg tablet 10 mg PO DAILY 06/29/23 07/25/24 valsartan 160 1 tablet PO DAILY 06/29/23 07/25/24 mg-hydrochlorothiazide 25 mg tablet diclofenac sodium 75 mg 75 mg PO DAILY 07/25/24 07/25/24 tablet,delayed release tadalafil 5 mg tablet 5 mg PO PRN PRN Erectile 07/25/24 07/25/24 Dysfunction Allergies Allergy/AdvReac Type Severity Reaction Status Date / Time pseudoephedrine AdvReac Headache Verified 02/13/24 15:12 [From [facility]] Review of Systems Review of Systems: All systems reviewed & are unremarkable except as noted in HPI and below Constitutional: Constitutional: Reports no additional constitutional complaints Eyes: Eyes: Reports no additional eye complaints ENT: Reports system reviewed and no additional complaints, except as documented Cardiovascular: Cardiovascular: Reports no additional cardiovascular complaints, Denies chest pain and Denies dyspnea Respiratory: Respiratory: Reports no additional respiratory complaints, Reports cough and Denies dyspnea Musculoskeletal: Musculoskeletal: Reports no additional musculoskeletal complaints Neurologic: Reports system reviewed and no additional complaints, except as documented Psychiatric: Psychiatric: Reports no additional psychiatric complaints PMF Past Medical History Medical History Bowel obstruction Surgical History Surgical History History of cholecystectomy History of hernia surgery Adhesiolysis with incisional hernia repair on 09/20/08 at [facility] History of incisional hernia repair 1. Open recurrent 20 cm incisional hernia repair with mesh 2. Bilateral myofascial release (transversus abdominis release--5 cm on the right and 5 cm on the left) 10/30/23 [facility] History of laparotomy +25 years ago Family History Family History Other Hypertension Social History Social History Smoking status: Never smoker Alcohol intake: current Do You Feel Safe in your Home?: Yes Lack of Transportation: No Lack of Food: Never True Current Housing: I Have Housing Concerned About Future Housing: No Difficulty Paying Gas/Electric Bills: No Difficulty Paying for Meds: No Currently Unemployed: No Education: High School Diploma/GED Difficulty w/ Childcare or Family Care: No Living arrangements: with family Occupation/Education: occupation Spiritual care concerns: No Comments At the time of my signature, I reviewed and agree with the nursing past medical, surgical, social, and family history. There is no relevant family history pertinent to the patient complaint. Exam Const: General: cooperative, healthy appearing, comfortable, no acute distress, alert and well nourished Nutritional Appearance: well nourished Orientation/consciousness: patient oriented x3 Limi
== END 2024-07-25 15:25 | disposition home or self-care (01) ==
PROVIDERS: Emergency Provider Nurse Practitioner Family; PCP Nurse Practitioner Family
DX: R05.9 Cough, unspecified (principal)
CPT/HCPCS: 99213; G0463